=== PATIENT | female | born 1955 | race Two or more races ===

== ENCOUNTER 2019-02-01 20:41 | Emergency (ER) | payer OTHER ==
[~2019-02-01] VITALS: Ht 152.4 cm; Wt 22.7 kg
[2019-02-01] MEDS ORDERED: NEOMY/BACITRA/POLYMYXIN B OINT UD PACKET TP ONE ×2 (22:12→22:15)
--- NOTE | 2019-02-01 22:15 | NUR ---
Patient discharged to home in stable conditon. Written and verbal after care instructions given. Patient verbalizes understanding of instructions.
[2019-02-01 22:16] VITALS: BP 150/75
== END 2019-02-01 22:16 | disposition home or self-care (01) ==
LOC: ER 20:43
DX: L03.115 Cellulitis of right lower limb (principal); E78.00 Pure hypercholesterolemia, unspecified
CPT/HCPCS: A4663